=== PATIENT | female | born 1950 | race Hispanic/Latino ===

== ENCOUNTER 2017-10-08 02:17 | Inpatient (IN) | payer MEDICARE ==
[~2017-10-08] VITALS: Ht 134.6 cm; Wt 57.4 kg
[2017-10-08] VITALS (39 sets, daily range): BP systolic 82–138; BP diastolic 33–80
[~2017-10-08 02:17] MED LIST: ADAL40PE SQ; ALEN70TA47 PO; BACL10TA PO; CYCL10 PO; DILT60CA PO; ERGO2000 PO; FERS325 PO; FLUT1AER IH; GABA-529 PO; LACT10SO32 PO; LEVO150T11 PO; MONT10TA24 PO; MYCO250C36 PO; NADO40TA19 PO; RANI150C4 PO; SIMV20TA6 PO; SPIR25TA6 PO; [UNRECOGNIZED DRUG - CODE] AU
[2017-10-08 02:48] LABS: EOSINOPHILS % (AUTO) 2.4 % (0.0-8.0); HEMATOCRIT 30.9 % (36-48); MEAN CORPUSCULAR HEMOGLOBIN 32.3 pg (27.0-33.0); MEAN CORPUSCULAR HGB CONC 34.8 g/dL (32.0-36.0); MEAN CORPUSCULAR VOLUME 92.8 fL (79-99); MONOCYTES % (AUTO) 9.8 % (3.0-13.0); NEUTROPHILS % (AUTO) 61.8 % (40.0-77.0); NUCLEATED RED BLOOD CELLS 0.1 % (0.0-0.19); PLATELET COUNT (AUTO) 132 K/uL (130-400); RED BLOOD CELL COUNT(AUTO) 3.33 MIL/uL (4.00-5.50); RED CELL DISTRIBUTION WIDTH 19.2 % (11.0-15.5)
[2017-10-08 03:05] LABS: ALBUMIN 1.7 g/dL (3.5-5.0); CREATININE 1.3 mg/dL (0.5-1.5); TOTAL PROTEIN, SERUM 5.9 g/dL (6.0-8.3)
[2017-10-08 03:25] LABS: INR 1.87 (0.85-1.15); PARTIAL THROMBOPLASTIN TIME 42.1 SEC (26.3-35.5); PROTHROMBIN TIME 19.4 SEC (9.6-11.6)
[2017-10-08] MEDS ORDERED: ZOSYN 3.375GM+NS 50ML 50 ML IV ONE (04:02)
[2017-10-08] MEDS ORDERED: PHYTONADIONE 10 MG/1 ML AMP ONE (04:03)
[2017-10-08] MEDS ORDERED: NOREPINEPHRINE BITARTRATE 1 MG/1 ML ML IV ONE ×2 (04:16→08:45)
[2017-10-08] MEDS ORDERED: DEXTROSE 5%-WATER 500 ML IV ONE (04:17)
[2017-10-08] MEDS: SODIUM CHLORIDE 0.9% 1000ML 1,000 ML IV SCH ×3 (06:00→23:04)
[2017-10-08] MEDS ORDERED: SODIUM CHLORIDE 0.9% 1000ML 1,000 ML IV SCH (07:15)
[2017-10-08] MEDS: ALBUMIN (HUMAN) 25% 50 ML IV SCH ×3 (07:15→23:03)
[2017-10-08] MEDS: PANTOPRAZOLE SODIUM 40 MG TABLET.DR PO SCH (07:30)
[2017-10-08] MEDS ORDERED: SODIUM CHLORIDE 0.9% 250 ML IV ONE (08:46)
[2017-10-08] MEDS: LACTULOSE 20 GM/30 ML UDCUP PO SCH ×3 (09:00→19:44)
[2017-10-08] MEDS ORDERED: PANTOPRAZOLE 40 MG/VIAL IVP SCH (09:00)
[2017-10-08] MEDS ORDERED: SODIUM CHLORIDE 0.9% 1000ML 1,000 ML IV ONE (09:58)
[2017-10-08] MEDS ORDERED: ALBUMIN (HUMAN) 25% 50 ML IV ONE (10:12)
[2017-10-08] MEDS ORDERED: PANTOPRAZOLE SODIUM 40 MG TABLET.DR PO ONE (10:12)
[2017-10-08] MEDS ORDERED: LACTULOSE 20 GM/30 ML UDCUP ONE (10:12)
[2017-10-08 10:56] LABS: INR 1.62 (0.85-1.15); PARTIAL THROMBOPLASTIN TIME 35.9 SEC (26.3-35.5); PROTHROMBIN TIME 16.9 SEC (9.6-11.6)
[2017-10-08] MEDS: NOREPINEPHRINE 4MG/NS 250ML IV SCH ×3 (12:03→21:20)
[2017-10-08] MEDS: ZOSYN 3.375GM+NS 50ML 50 ML IV SCH ×2 (13:05→19:51)
[2017-10-08] MEDS: ALBUMIN (HUMAN) 25% 100 ML IV PRN ×2 (16:05→16:06)
[2017-10-08] MEDS: FUROSEMIDE 10 MG/ML 4ML VIAL IV SCH (17:50)
[2017-10-08] MEDS: MIDODRINE HCL 5 MG TABLET PO SCH ×2 (17:50→23:23)
[2017-10-08] MEDS: SPIRONOLACTONE 25 MG TAB PO SCH (19:44)
[2017-10-09] VITALS (29 sets, daily range): BP systolic 71–122; BP diastolic 29–69
[2017-10-09] MEDS: NOREPINEPHRINE 4MG/NS 250ML IV SCH ×2 (04:15→11:11)
[2017-10-09] MEDS: ZOSYN 3.375GM+NS 50ML 50 ML IV SCH ×3 (04:16→20:18)
[2017-10-09] MEDS: FUROSEMIDE 10 MG/ML 4ML VIAL IV SCH ×2 (04:16→15:48)
[2017-10-09 05:47] LABS: HEMATOCRIT 21.2 % (36-48); MEAN CORPUSCULAR HEMOGLOBIN 32.4 pg (27.0-33.0); MEAN CORPUSCULAR HGB CONC 34.7 g/dL (32.0-36.0); MEAN CORPUSCULAR VOLUME 93.2 fL (79-99); NUCLEATED RED BLOOD CELLS 0.1 % (0.0-0.19); PLATELET COUNT (AUTO) 79 K/uL (130-400); RED BLOOD CELL COUNT(AUTO) 2.28 MIL/uL (4.00-5.50); RED CELL DISTRIBUTION WIDTH 19.5 % (11.0-15.5); WHITE BLOOD COUNT (AUTO) 5.2 K/uL (4.8-10.8)
[2017-10-09 05:57] LABS: CREATININE 1.1 mg/dL (0.5-1.5); MAGNESIUM 1.8 mg/dL (1.80-2.40); PHOSPHORUS 2.6 mg/dL (2.5-4.9); POTASSIUM 3.1 mmol/L (3.5-5.1)
[2017-10-09] MEDS: MIDODRINE HCL 5 MG TABLET PO SCH ×3 (08:34→23:28)
[2017-10-09] MEDS: PANTOPRAZOLE SODIUM 40 MG TABLET.DR PO SCH (08:34)
[2017-10-09] MEDS: LACTULOSE 20 GM/30 ML UDCUP PO SCH ×3 (08:34→20:18)
[2017-10-09] MEDS: SPIRONOLACTONE 25 MG TAB PO SCH ×2 (08:34→20:18)
[2017-10-09] MEDS: SODIUM CHLORIDE 0.9% 1000ML 1,000 ML IV SCH (09:21)
[2017-10-09] MEDS ORDERED: POTASSIUM CHLORIDE 10% ELIXIR 20 MEQ/15 ML UDCUP PO PRN (15:00)
[2017-10-09] MEDS ORDERED: LIDOCAINE HCL-MPF 1% 2ML VIAL IVP PRN (15:00)
[2017-10-09] MEDS: ALBUMIN (HUMAN) 25% 100 ML IV SCH ×2 (15:48→21:40)
[2017-10-09] MEDS: POTASSIUM CHLORIDE 20MEQ/100ML 100 ML IV PRN (15:50)
[2017-10-09] MEDS: TRAMADOL HCL 50 MG TABLET PO PRN (20:36)
[2017-10-10] VITALS (28 sets, daily range): BP systolic 86–123; BP diastolic 29–63
[2017-10-10] MEDS: ZOSYN 3.375GM+NS 50ML 50 ML IV SCH ×3 (04:27→19:41)
[2017-10-10] MEDS: FUROSEMIDE 10 MG/ML 4ML VIAL IV SCH ×2 (04:28→16:32)
[2017-10-10 04:50] LABS: HEMATOCRIT 21.2 % (36-48); MEAN CORPUSCULAR HEMOGLOBIN 32.8 pg (27.0-33.0); MEAN CORPUSCULAR HGB CONC 34.8 g/dL (32.0-36.0); MEAN CORPUSCULAR VOLUME 94.4 fL (79-99); NUCLEATED RED BLOOD CELLS 0.1 % (0.0-0.19); PLATELET COUNT (AUTO) 65 K/uL (130-400); RED BLOOD CELL COUNT(AUTO) 2.24 MIL/uL (4.00-5.50); RED CELL DISTRIBUTION WIDTH 20.6 % (11.0-15.5)
[2017-10-10 05:11] LABS: ALBUMIN 3.7 g/dL (3.5-5.0); BILIRUBIN,TOTAL 4.7 mg/dL (0.2-1.0); MAGNESIUM 1.8 mg/dL (1.80-2.40); PHOSPHORUS 1.9 mg/dL (2.5-4.9); TOTAL PROTEIN, SERUM 5.4 g/dL (6.0-8.3)
[2017-10-10] MEDS: ALBUMIN (HUMAN) 25% 100 ML IV SCH (05:48)
[2017-10-10 06:34] LABS: INR 2.9 (0.85-1.15); PROTHROMBIN TIME 29.8 SEC (9.6-11.6)
[2017-10-10 07:12] LABS: PARTIAL THROMBOPLASTIN TIME 119.3 SEC (26.3-35.5)
[2017-10-10] MEDS: POTASSIUM CHLORIDE 20MEQ/100ML 100 ML IV PRN ×2 (07:44→22:33)
[2017-10-10] MEDS: SPIRONOLACTONE 25 MG TAB PO SCH ×2 (08:08→20:01)
[2017-10-10] MEDS: PANTOPRAZOLE SODIUM 40 MG TABLET.DR PO SCH ×2 (08:08→20:01)
[2017-10-10] MEDS: MIDODRINE HCL 5 MG TABLET PO SCH ×3 (08:08→23:33)
[2017-10-10] MEDS: LACTULOSE 20 GM/30 ML UDCUP PO SCH ×3 (08:08→20:01)
[2017-10-10] MEDS: POTASSIUM CHLORIDE 20 MEQ ERTAB PO PRN ×4 (11:05→18:32)
[2017-10-10] MEDS ORDERED: MEGESTROL 400 MG/10 ML UDCUP PO SCH (12:30)
[2017-10-10] MEDS ORDERED: TROLAMINE SALICYLATE CREAM 85 GM TUBE TP PRN (14:30)
[2017-10-10] MEDS: MAGNESIUM 2GM PREMIX 50ML 50 ML IV SCH (15:29)
[2017-10-10] MEDS: POTASSIUM PHOS 15 mMOL+NS250ML 250 ML IV SCH (16:32)
[2017-10-10] MEDS ORDERED: SPIR25TA6 PO (18:08)
[2017-10-10] MEDS ORDERED: CHOL500050 PO (18:08)
[2017-10-10] MEDS ORDERED: LEVO75TA10 PO (18:08)
[2017-10-10] MEDS ORDERED: NADO40TA19 PO (18:08)
[2017-10-10] MEDS ORDERED: ALEN70TA47 PO (18:08)
[2017-10-10] MEDS ORDERED: DILT120C92 PO (18:08)
[2017-10-10] MEDS ORDERED: RANI150T7 PO (18:08)
[2017-10-10] MEDS ORDERED: FERR325T22 PO (18:08)
[2017-10-10] MEDS: TRAMADOL HCL 50 MG TABLET PO PRN (20:01)
[2017-10-11] VITALS (19 sets, daily range): BP systolic 104–128; BP diastolic 41–69
[2017-10-11] MEDS: FUROSEMIDE 10 MG/ML 4ML VIAL IV SCH ×2 (03:19→15:36)
[2017-10-11] MEDS: ZOSYN 3.375GM+NS 50ML 50 ML IV SCH ×3 (03:19→20:03)
[2017-10-11 04:30] LABS: HEMATOCRIT 22.8 % (36-48); MEAN CORPUSCULAR HGB CONC 35.8 g/dL (32.0-36.0); MEAN CORPUSCULAR VOLUME 95.2 fL (79-99); NUCLEATED RED BLOOD CELLS 0.1 % (0.0-0.19); PLATELET COUNT (AUTO) 63 K/uL (130-400); RED BLOOD CELL COUNT(AUTO) 2.39 MIL/uL (4.00-5.50); RED CELL DISTRIBUTION WIDTH 20.7 % (11.0-15.5); WHITE BLOOD COUNT (AUTO) 4.3 K/uL (4.8-10.8)
[2017-10-11 04:36] LABS: CREATININE 0.9 mg/dL (0.5-1.5); MAGNESIUM 1.8 mg/dL (1.80-2.40); POTASSIUM 4.2 mmol/L (3.5-5.1)
[2017-10-11] MEDS: LACTULOSE 20 GM/30 ML UDCUP PO SCH ×3 (08:36→20:48)
[2017-10-11] MEDS: SPIRONOLACTONE 25 MG TAB PO SCH ×2 (08:36→20:48)
[2017-10-11] MEDS: MIDODRINE HCL 5 MG TABLET PO SCH ×2 (08:36→15:36)
[2017-10-11] MEDS: PANTOPRAZOLE SODIUM 40 MG TABLET.DR PO SCH ×2 (08:36→20:48)
[2017-10-11] MEDS: MAGNESIUM 2GM PREMIX 50ML 50 ML IV SCH (08:46)
[2017-10-11] MEDS ORDERED: MEGESTROL 400 MG/10 ML UDCUP PO SCH (09:00)
[2017-10-11] MEDS: POTASSIUM PHOS 15 mMOL+NS250ML 250 ML IV SCH (10:02)
[2017-10-12] MEDS: MIDODRINE HCL 5 MG TABLET PO SCH ×3 (00:58→16:30)
[2017-10-12 03:51] VITALS: BP 115/53
[2017-10-12 04:07] LABS: CREATININE 0.9 mg/dL (0.5-1.5); POTASSIUM 4.5 mmol/L (3.5-5.1)
[2017-10-12] MEDS: ZOSYN 3.375GM+NS 50ML 50 ML IV SCH ×3 (04:11→22:13)
[2017-10-12] MEDS: FUROSEMIDE 10 MG/ML 4ML VIAL IV SCH ×2 (04:11→16:47)
[2017-10-12 07:34] VITALS: BP 110/67
[2017-10-12] MEDS: SPIRONOLACTONE 25 MG TAB PO SCH ×2 (10:08→22:12)
[2017-10-12] MEDS: MEGESTROL 400 MG/10 ML UDCUP PO SCH (10:08)
[2017-10-12] MEDS: PANTOPRAZOLE SODIUM 40 MG TABLET.DR PO SCH ×2 (10:09→22:12)
[2017-10-12] MEDS: LACTULOSE 20 GM/30 ML UDCUP PO SCH ×3 (10:09→22:12)
[2017-10-12 11:33] VITALS: BP 120/71
[2017-10-12] MEDS: PHYTONADIONE 10 MG/1 ML AMP IM SCH ×2 (11:34→16:46)
[2017-10-12 14:30] LABS: INR 2.55 (0.85-1.15); PROTHROMBIN TIME 26.3 SEC (9.6-11.6)
[2017-10-12 16:10] VITALS: BP 132/60
[2017-10-12] MEDS ORDERED: ONDANSETRON HCL 4 MG/2 ML VIAL IVP PRN (19:15)
[2017-10-12 19:21] VITALS: BP 107/54
[2017-10-12 23:30] VITALS: BP 113/50
[2017-10-13] MEDS: MIDODRINE HCL 5 MG TABLET PO SCH ×3 (02:33→17:17)
[2017-10-13 03:36] LABS: MEAN CORPUSCULAR HEMOGLOBIN 33.1 pg (27.0-33.0); MEAN CORPUSCULAR VOLUME 94.6 fL (79-99); PLATELET COUNT (AUTO) 66 K/uL (130-400); RED BLOOD CELL COUNT(AUTO) 3.49 MIL/uL (4.00-5.50); RED CELL DISTRIBUTION WIDTH 20.5 % (11.0-15.5); WHITE BLOOD COUNT (AUTO) 6.9 K/uL (4.8-10.8)
[2017-10-13 03:43] LABS: CREATININE 0.9 mg/dL (0.5-1.5); POTASSIUM 4.2 mmol/L (3.5-5.1)
[2017-10-13] MEDS: FUROSEMIDE 10 MG/ML 4ML VIAL IV SCH ×2 (03:44→17:17)
[2017-10-13] MEDS: ZOSYN 3.375GM+NS 50ML 50 ML IV SCH ×3 (03:45→20:28)
[2017-10-13 04:12] VITALS: BP 107/50
[2017-10-13 07:29] VITALS: BP 110/64
[2017-10-13] MEDS: MEGESTROL 400 MG/10 ML UDCUP PO SCH (08:22)
[2017-10-13] MEDS: SPIRONOLACTONE 25 MG TAB PO SCH ×2 (08:22→20:28)
[2017-10-13] MEDS: PANTOPRAZOLE SODIUM 40 MG TABLET.DR PO SCH ×2 (08:22→20:28)
[2017-10-13] MEDS: LACTULOSE 20 GM/30 ML UDCUP PO SCH ×3 (08:28→20:28)
[2017-10-13 11:14] VITALS: BP 112/70
[2017-10-13 16:11] VITALS: BP 95/67
[2017-10-13 19:17] VITALS: BP 119/57
[2017-10-13 23:46] VITALS: BP 119/58
[2017-10-14] MEDS: MIDODRINE HCL 5 MG TABLET PO SCH ×3 (02:35→16:07)
[2017-10-14 03:36] VITALS: BP 116/52
[2017-10-14] MEDS: ZOSYN 3.375GM+NS 50ML 50 ML IV SCH ×3 (03:44→21:54)
[2017-10-14] MEDS: FUROSEMIDE 10 MG/ML 4ML VIAL IV SCH ×2 (03:45→16:07)
[2017-10-14 04:35] LABS: BASOPHILS % (AUTO) 0.4 % (0.0-5.0); EOSINOPHILS % (AUTO) 5.3 % (0.0-8.0); HEMATOCRIT 30.6 % (36-48); LYMPHOCYTES % (AUTO) 24.4 % (21.0-51.0); MEAN CORPUSCULAR HEMOGLOBIN 33.1 pg (27.0-33.0); MEAN CORPUSCULAR HGB CONC 34.9 g/dL (32.0-36.0); MEAN CORPUSCULAR VOLUME 94.7 fL (79-99); MONOCYTES % (AUTO) 21.4 % (3.0-13.0); NEUTROPHILS % (AUTO) 48.5 % (40.0-77.0); NUCLEATED RED BLOOD CELLS 0.3 % (0.0-0.19); PLATELET COUNT (AUTO) 69 K/uL (130-400); RED BLOOD CELL COUNT(AUTO) 3.23 MIL/uL (4.00-5.50); RED CELL DISTRIBUTION WIDTH 20.2 % (11.0-15.5); WHITE BLOOD COUNT (AUTO) 7.7 K/uL (4.8-10.8)
[2017-10-14 04:50] LABS: ALBUMIN 2.4 g/dL (3.5-5.0); BILIRUBIN,TOTAL 7.2 mg/dL (0.2-1.0); CREATININE 0.9 mg/dL (0.5-1.5); POTASSIUM 3.8 mmol/L (3.5-5.1); TOTAL PROTEIN, SERUM 4.9 g/dL (6.0-8.3)
[2017-10-14 07:36] VITALS: BP 107/46
[2017-10-14] MEDS: MEGESTROL 400 MG/10 ML UDCUP PO SCH (08:42)
[2017-10-14] MEDS: SPIRONOLACTONE 25 MG TAB PO SCH ×2 (08:42→21:54)
[2017-10-14] MEDS: PANTOPRAZOLE SODIUM 40 MG TABLET.DR PO SCH ×2 (08:43→21:54)
[2017-10-14] MEDS: LACTULOSE 20 GM/30 ML UDCUP PO SCH ×3 (08:43→21:54)
[2017-10-14 11:18] VITALS: BP 126/73
[2017-10-14 16:19] VITALS: BP 113/54
[2017-10-14 19:34] VITALS: BP 116/52
[2017-10-14 23:46] VITALS: BP 107/45
[2017-10-15] MEDS: MIDODRINE HCL 5 MG TABLET PO SCH ×3 (00:19→16:27)
[2017-10-15] MEDS: ZOSYN 3.375GM+NS 50ML 50 ML IV SCH ×3 (03:55→21:25)
[2017-10-15] MEDS: FUROSEMIDE 10 MG/ML 4ML VIAL IV SCH ×2 (03:55→16:27)
[2017-10-15 04:00] VITALS: BP 108/57
[2017-10-15 04:28] LABS: BASOPHILS % (AUTO) 0.6 % (0.0-5.0); EOSINOPHILS % (AUTO) 6.7 % (0.0-8.0); HEMATOCRIT 27.2 % (36-48); LYMPHOCYTES % (AUTO) 30.8 % (21.0-51.0); MEAN CORPUSCULAR HEMOGLOBIN 32.9 pg (27.0-33.0); MEAN CORPUSCULAR HGB CONC 34.8 g/dL (32.0-36.0); MEAN CORPUSCULAR VOLUME 94.7 fL (79-99); NEUTROPHILS % (AUTO) 41.9 % (40.0-77.0); NUCLEATED RED BLOOD CELLS 0.1 % (0.0-0.19); PLATELET COUNT (AUTO) 55 K/uL (130-400); RED BLOOD CELL COUNT(AUTO) 2.87 MIL/uL (4.00-5.50); RED CELL DISTRIBUTION WIDTH 20.2 % (11.0-15.5)
[2017-10-15 04:41] LABS: ALBUMIN 2.2 g/dL (3.5-5.0); BILIRUBIN,TOTAL 6.3 mg/dL (0.2-1.0); CREATININE 0.8 mg/dL (0.5-1.5); POTASSIUM 3.8 mmol/L (3.5-5.1); TOTAL PROTEIN, SERUM 4.6 g/dL (6.0-8.3)
[2017-10-15 04:47] LABS: INR 2.57 (0.85-1.15); PROTHROMBIN TIME 26.5 SEC (9.6-11.6)
[2017-10-15 05:12] LABS: PARTIAL THROMBOPLASTIN TIME > 120.0 SEC (26.3-35.5)
[2017-10-15 07:00] VITALS: BP 106/43
[2017-10-15] MEDS: LACTULOSE 20 GM/30 ML UDCUP PO SCH ×3 (09:25→21:25)
[2017-10-15] MEDS: SPIRONOLACTONE 25 MG TAB PO SCH ×2 (09:25→21:25)
[2017-10-15] MEDS: PANTOPRAZOLE SODIUM 40 MG TABLET.DR PO SCH ×2 (09:25→21:25)
[2017-10-15] MEDS: MEGESTROL 400 MG/10 ML UDCUP PO SCH (09:25)
[2017-10-15 11:00] VITALS: BP 125/70
[2017-10-15 16:00] VITALS: BP 108/47
[2017-10-15 19:35] VITALS: BP 114/55
[2017-10-16 00:20] VITALS: BP 109/55
[2017-10-16] MEDS: MIDODRINE HCL 5 MG TABLET PO SCH ×3 (00:35→16:45)
[2017-10-16 03:57] VITALS: BP 110/59
[2017-10-16] MEDS: ZOSYN 3.375GM+NS 50ML 50 ML IV SCH ×3 (05:06→21:51)
[2017-10-16] MEDS: FUROSEMIDE 10 MG/ML 4ML VIAL IV SCH ×2 (05:07→16:30)
[2017-10-16 07:00] VITALS: BP 117/48
[2017-10-16] MEDS: MEGESTROL 400 MG/10 ML UDCUP PO SCH (09:16)
[2017-10-16] MEDS: LACTULOSE 20 GM/30 ML UDCUP PO SCH ×3 (09:16→21:51)
[2017-10-16] MEDS: SPIRONOLACTONE 25 MG TAB PO SCH ×2 (09:17→21:51)
[2017-10-16] MEDS: PANTOPRAZOLE SODIUM 40 MG TABLET.DR PO SCH ×2 (09:17→21:51)
[2017-10-16 11:00] VITALS: BP 110/54
[2017-10-16 16:00] VITALS: BP 88/37
[2017-10-16 19:53] VITALS: BP 112/59
[2017-10-17] VITALS (8 sets, daily range): BP systolic 97–118; BP diastolic 44–67
[2017-10-17] MEDS: MIDODRINE HCL 5 MG TABLET PO SCH ×3 (01:17→16:54)
[2017-10-17] MEDS: ZOSYN 3.375GM+NS 50ML 50 ML IV SCH ×3 (05:05→21:03)
[2017-10-17] MEDS: FUROSEMIDE 40 MG TABLET PO SCH (09:23)
[2017-10-17] MEDS: SPIRONOLACTONE 25 MG TAB PO SCH ×2 (09:23→21:03)
[2017-10-17] MEDS: LACTULOSE 20 GM/30 ML UDCUP PO SCH ×3 (09:24→21:03)
[2017-10-17] MEDS: MEGESTROL 400 MG/10 ML UDCUP PO SCH (09:24)
[2017-10-17] MEDS: PANTOPRAZOLE SODIUM 40 MG TABLET.DR PO SCH ×2 (09:24→21:03)
[2017-10-17 11:56] LABS: HEMATOCRIT 32.4 % (36-48); MEAN CORPUSCULAR HEMOGLOBIN 32.8 pg (27.0-33.0); MEAN CORPUSCULAR HGB CONC 34.5 g/dL (32.0-36.0); MEAN CORPUSCULAR VOLUME 95.1 fL (79-99); NUCLEATED RED BLOOD CELLS 0.1 % (0.0-0.19); PLATELET COUNT (AUTO) 85 K/uL (130-400); RED BLOOD CELL COUNT(AUTO) 3.41 MIL/uL (4.00-5.50); RED CELL DISTRIBUTION WIDTH 21.5 % (11.0-15.5); WHITE BLOOD COUNT (AUTO) 8.6 K/uL (4.8-10.8)
[2017-10-17 12:08] LABS: ALBUMIN 2.5 g/dL (3.5-5.0); BILIRUBIN,TOTAL 6.4 mg/dL (0.2-1.0); CREATININE 0.8 mg/dL (0.5-1.5); POTASSIUM 3.6 mmol/L (3.5-5.1); TOTAL PROTEIN, SERUM 5.6 g/dL (6.0-8.3)
[2017-10-17 12:22] LABS: INR 2.31 (0.85-1.15); PARTIAL THROMBOPLASTIN TIME 51.4 SEC (26.3-35.5); PROTHROMBIN TIME 23.9 SEC (9.6-11.6)
[2017-10-18] MEDS: MIDODRINE HCL 5 MG TABLET PO SCH ×3 (01:17→16:41)
[2017-10-18] MEDS: ZOSYN 3.375GM+NS 50ML 50 ML IV SCH ×3 (03:44→21:10)
[2017-10-18 04:13] VITALS: BP 98/53
[2017-10-18 07:34] VITALS: BP 97/57
[2017-10-18] MEDS: MEGESTROL 400 MG/10 ML UDCUP PO SCH (09:10)
[2017-10-18] MEDS: LACTULOSE 20 GM/30 ML UDCUP PO SCH ×3 (09:10→21:10)
[2017-10-18] MEDS: SPIRONOLACTONE 25 MG TAB PO SCH ×2 (09:10→21:17)
[2017-10-18] MEDS: FUROSEMIDE 40 MG TABLET PO SCH (09:10)
[2017-10-18] MEDS: PANTOPRAZOLE SODIUM 40 MG TABLET.DR PO SCH ×2 (09:10→21:10)
[2017-10-18 12:31] VITALS: BP 101/57
[2017-10-18 16:42] VITALS: BP 107/55
[2017-10-18 19:39] VITALS: BP 120/62
[2017-10-18 23:38] VITALS: BP 103/59
[2017-10-19] VITALS (22 sets, daily range): BP systolic 56–143; BP diastolic 19–92
[2017-10-19] MEDS: MIDODRINE HCL 5 MG TABLET PO SCH ×2 (01:12→08:04)
[2017-10-19] MEDS: ZOSYN 3.375GM+NS 50ML 50 ML IV SCH ×2 (02:56→11:34)
[2017-10-19 04:21] LABS: INR 2.57 (0.85-1.15); PARTIAL THROMBOPLASTIN TIME 64.7 SEC (26.3-35.5); PROTHROMBIN TIME 26.5 SEC (9.6-11.6)
[2017-10-19] MEDS: POTASSIUM CHLORIDE 20 MEQ ERTAB PO PRN (07:02)
[2017-10-19] MEDS: NOREPINEPHRINE 4MG/NS 250ML 250 ML IV SCH ×2 (08:35→11:02)
[2017-10-19] MEDS: LACTULOSE 20 GM/30 ML UDCUP PO SCH (09:00)
[2017-10-19] MEDS: PANTOPRAZOLE SODIUM 40 MG TABLET.DR PO SCH (09:00)
[2017-10-19] MEDS: MEGESTROL 400 MG/10 ML UDCUP PO SCH (09:00)
[2017-10-19] MEDS: FUROSEMIDE 40 MG TABLET PO SCH (09:00)
[2017-10-19] MEDS: SPIRONOLACTONE 25 MG TAB PO SCH (09:00)
[2017-10-19] MEDS ORDERED: EPINEPHRINE 2 MG in DEXTROSE 5%-WATER 250 ML IV PRN (10:45)
== END 2017-10-19 12:30 | disposition home or self-care (01) | DRG 871 ==
LOC: EDH 02:17 → EDHIP 05:40 → 2CH 11:07 → 2AH 10-11 16:58 → 2BH 10-19 08:22
PROVIDERS: ADMIT Internal Medicine Hematology & Oncology; ATTEND Internal Medicine Hematology & Oncology
PROC: 02HV33Z Insertion of Infusion Device into Superior Vena Cava, Percutaneous Approach (ICD-10-PCS; principal; 2017-10-08)
PROC: 0W9G3ZZ Drainage of Peritoneal Cavity, Percutaneous Approach (ICD-10-PCS; 2017-10-08)
PROC: 30233K1 Transfusion of Nonautologous Frozen Plasma into Peripheral Vein, Percutaneous Approach (ICD-10-PCS; 2017-10-08)
PROC: 0W9G3ZZ Drainage of Peritoneal Cavity, Percutaneous Approach (ICD-10-PCS; 2017-10-12)
DX: A41.9 Sepsis, unspecified organism (principal); G93.40 Encephalopathy, unspecified; K65.2 Spontaneous bacterial peritonitis; R65.21 Severe sepsis with septic shock; R18.8 Other ascites; E87.1 Hypo-osmolality and hyponatremia; E46 Unspecified protein-calorie malnutrition; K74.60 Unspecified cirrhosis of liver; E78.5 Hyperlipidemia, unspecified; E03.9 Hypothyroidism, unspecified; D64.9 Anemia, unspecified; D69.6 Thrombocytopenia, unspecified; D89.9 Disorder involving the immune mechanism, unspecified; I10 Essential (primary) hypertension; J44.9 Chronic obstructive pulmonary disease, unspecified; K72.90 Hepatic failure, unspecified without coma; Z80.0 Family history of malignant neoplasm of digestive organs; Z91.19 Patient's noncompliance with other medical treatment and regimen; Z74.01 Bed confinement status; Z68.31 Body mass index [BMI] 31.0-31.9, adult; Z88.5 Allergy status to narcotic agent; Z88.8 Allergy status to other drugs, medicaments and biological substances
CPT/HCPCS: 36415; 49083; 71045; 74176; 76700; 80048; 80053; 82140; 82550; 82948; 83605; 83735; 83880; 84100; 84132; 84484; 85025; 85027; 85610; 85730; 86850; 86900; 86901; 86927; 87040; 93005; 97039; 99291; C9113; J1940; J2405; J2543; J3430; J3475; J3480; J3490; J7030; J7060; P9017; P9046; P9047

== ENCOUNTER 2017-10-19 12:30 | Inpatient (IN) | payer OTHER ==
[~2017-10-19 12:30] MED LIST changes: -ADAL40PE SQ; -BACL10TA PO; +CHOL500050 PO; -CYCL10 PO; +DILT120C92 PO; -DILT60CA PO; -ERGO2000 PO; +FERR325T22 PO; -FERS325 PO; -FLUT1AER IH; -GABA-529 PO; -LACT10SO32 PO; -LEVO150T11 PO; +LEVO75TA10 PO; -MONT10TA24 PO; -MYCO250C36 PO; -RANI150C4 PO; +RANI150T7 PO; -SIMV20TA6 PO; -[UNRECOGNIZED DRUG - CODE] AU
== END 2017-10-19 14:25 | disposition expired | DRG 871 ==
LOC: 2BH 12:30
PROVIDERS: ADMIT Internal Medicine Hematology & Oncology; ATTEND Internal Medicine Hematology & Oncology
DX: A41.9 Sepsis, unspecified organism (principal); J96.00 Acute respiratory failure, unspecified whether with hypoxia or hypercapnia; E46 Unspecified protein-calorie malnutrition; R18.8 Other ascites; K74.60 Unspecified cirrhosis of liver; D89.9 Disorder involving the immune mechanism, unspecified; E03.9 Hypothyroidism, unspecified; E78.5 Hyperlipidemia, unspecified; J44.9 Chronic obstructive pulmonary disease, unspecified; I10 Essential (primary) hypertension; Z88.5 Allergy status to narcotic agent; Z88.8 Allergy status to other drugs, medicaments and biological substances; K72.90 Hepatic failure, unspecified without coma; Z91.19 Patient's noncompliance with other medical treatment and regimen